=== PATIENT | female | born 1950 | race Caucasian/White ===

== ENCOUNTER → 2020-12-31 10:52 | Outpatient (CLI) | payer MEDICARE, OTHER, SELFPAY ==
--- NOTE | 2020-12-31 | DI.CT.S_ITS ---
PROCEDURE: CT CHEST ABD PEL W CON INDICATIONS: Malignant neoplasm of endometrium TECHNIQUE: After the administration of oral and intravenous contrast, axial sections acquired from the supraclavicular neck to the pubic symphysis. Coronal and sagittal reformats were performed. For radiation dose reduction, the following was used: automated exposure control, adjustment of mA and/or kV according to patient size. COMPARISON: Outside Facility, RG, CT THORAX/ABDOMEN/PELVIS WITH CONTRAST, 05/06/2017, 13:16. FINDINGS: Image quality: Excellent. CHEST: Lower Neck: No enlarged lymph nodes. Thyroid: Within normal limits. Axillae: No enlarged lymph nodes. Chest Wall: Unremarkable. Lungs and Airways: No consolidation or suspicious nodules. Pleura: No pneumothorax or pleural effusions. Heart: Heart size is normal. No pericardial effusion. Thoracic Vessels: The aorta and pulmonary arteries demonstrate normal size. 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 Mediastinum and Anne-Marie: No enlarged lymph nodes. Esophagus: No wall thickening. No hiatal hernia. ABDOMEN: Liver: Again noted is a right lobe liver hemangioma. No suspicious liver lesions. Gallbladder: Gallbladder is again noted to be filled with stones. Biliary ducts: Unremarkable. Pancreas: Unremarkable. Spleen: Unremarkable. Adrenal Glands: Unremarkable. Kidneys and Ureters: Unremarkable. Stomach and Bowel: Stomach, small bowel loops, and colon are unremarkable. Large fecal load. Peritoneum: No abnormal intraperitoneal fluid. No free air. Ventral Wall: No hernia. Abdominal Nodes: No retroperitoneal or mesenteric adenopathy by size criteria. Vessels: Aorta and inferior vena cava are normal in size. PELVIS: Pelvic Organs: Again noted is a fibroid uterus. However, there is now a highly suspicious appearance of the endometrium, which appears to be distended with mass or fluid. Bladder: Unremarkable. Pelvic Nodes: No enlarged lymph nodes. Miscellaneous: No inguinal hernias are seen. Bones: Unremarkable. IMPRESSION: 1. No evidence of recurrent lymphoma in the chest, abdomen, and pelvis. 2. Findings are highly suspicious for endometrial carcinoma. Recommend pelvic ultrasound versus pelvic MRI with and without contrast. 3. Cholelithiasis. 4. Liver hemangioma. Comment: Findings highly suspicious for endometrial carcinoma. An Urgent Findings note was created in PACS to ensure notification of the referring clinician. Dictated by: Andre Mendoza M.D. on 12/31/2020 at 15:34 Approved by: Andre Mendoza M.D. on 12/31/2020 at 15:46
--- NOTE | 2020-12-31 | DI.CT.S_ITS ---
PROCEDURE: CT SOFT TISSUE NECK W CON INDICATIONS: 70-year-old female with non-Hodgkin's lymphoma and recent uterine cancer diagnosis. TECHNIQUE: After the administration of intravenous contrast, 3.0 mm axial sections acquired from the sella to the aortic arch. Additional oblique axial 3.0 mm sections acquired through the pharynx. 3 mm thick coronal and sagittal reformats were generated. For radiation dose reduction, the following was used: automated exposure control. COMPARISON: Outside Facility, RG, CT SOFT TISSUE NECK WITH CONTRAST, 05/06/2017, 13:22. FINDINGS: Skull Base: The visualized intracranial contents, skull, and orbits are unremarkable. Visualized paranasal sinuses are clear. Pharynx and Larynx: The nasopharyngeal airway is patent and midline. Parapharyngeal soft tissues including palatine tonsils and base of the tongue are normal. Retropharyngeal space unremarkable. Normal appearance of the false and true vocal cords. Muscles and Fascial Planes: Fascial planes are well maintained. No abscess or mass lesion. Lymph Nodes: No evidence of adenopathy. Vasculature: Incidental aberrant right subclavian artery origin, an anatomic variant. Submandibular and Parotid Glands: Normal in size and attenuation. Thyroid: Unremarkable. No enlarged or calcified nodules. Bones: No acute fracture. No osteolytic or blastic lesion is evident. Normal bone mineralization. Multilevel degenerative disc disease and arthropathy noted without lytic or blastic lesion. Lung Apices: The visualized lung apices are clear other than 5 mm sub solid left upper lobe nodule on image 2/56, stable from the prior. IMPRESSION: 1. No evidence of metastatic disease. No adenopathy. 2. Benign left upper lobe 5 mm nodule stable from 2013 Approved by: Artur Diallo M.D. on 12/31/2020 at 16:21
[2020-12-31 11:39] LABS: BUN Creatinine Ratio 31.6 (6-22); Blood Urea Nitrogen 24 mg/dL (7-17); Estimated Glomerular Filt Rate > 60.0 mL/min (>60)
== END ==
PROVIDERS: Referring Provider Obstetrics & Gynecology; Visit Provider Obstetrics & Gynecology
DX: Z01.818 Encounter for other preprocedural examination (principal); C54.1 Malignant neoplasm of endometrium; D18.09 Hemangioma of other sites; K80.20 Calculus of gallbladder without cholecystitis without obstruction; R91.1 Solitary pulmonary nodule; Z85.72 Personal history of non-Hodgkin lymphomas
CPT/HCPCS: 36415; 70491; 71260; 74177; 82565; 84520; 93005; 93010; Q9967